=== PATIENT | female | born 1980 | race Caucasian/White ===

== ENCOUNTER → 2023-10-26 06:27 | Day surgery (SDC) | payer OTHER, SELFPAY | LOC: GI 06:27 | PROVIDERS: ATTENDING PHYSICIAN Internal Medicine Gastroenterology | DX: Z12.11 Encounter for screening for malignant neoplasm of colon (principal); D12.2 Benign neoplasm of ascending colon; D12.3 Benign neoplasm of transverse colon; K57.30 Diverticulosis of large intestine without perforation or abscess without bleeding; K64.0 First degree hemorrhoids | CPT/HCPCS: 45385; 88305 ==

== ENCOUNTER → 2024-02-17 08:26 | Outpatient (REF) | payer OTHER, SELFPAY | LOC: HWRAD 08:26 | PROVIDERS: ATTENDING PHYSICIAN Obstetrics & Gynecology; FAMILY PHYSICIAN Internal Medicine | DX: N83.209 Unspecified ovarian cyst, unspecified side (principal) | CPT/HCPCS: 76830; 76856 ==

== ENCOUNTER → 2024-08-29 08:30 | Outpatient (REF) | payer OTHER, SELFPAY | LOC: RCS 08:30 | PROVIDERS: ATTENDING PHYSICIAN Internal Medicine Cardiovascular Disease; FAMILY PHYSICIAN Internal Medicine | DX: R00.2 Palpitations (principal); Z82.49 Family history of ischemic heart disease and other diseases of the circulatory system; R06.09 Other forms of dyspnea | CPT/HCPCS: 93306 ==